=== PATIENT | male | born 1950 | race Caucasian/White ===

== ENCOUNTER 2017-06-28 12:43 | Emergency (ER) | payer MEDICARE ==
[~2017-06-28] VITALS: Ht 175.3 cm; Wt 135.0 kg
[~2017-06-28 12:43] MED LIST: ALLO300 PO; BUPR150T3 PO; GLIM1 PO; GLUC250C5 PO; GLUCTAB PO; METH750T2 PO; REDCAP2 PO; UNIV15TA PO; ZIAC106.25 PO
[2017-06-28 12:47] VITALS: BP 174/105; PULSE 92; RESP 19; TEMP 97.6
[2017-06-28] MEDS ORDERED: KETOROLAC TROMETHAMINE 60 MG/2 ML (IM) VIAL IM ONE (14:00)
[2017-06-28] MEDS ORDERED: ORPHENADRINE INJ 60 MG/2 ML AMP IM ONE (14:00)
--- NOTE | 2017-06-28 15:22 | PD ---
HPI Chief Complaint: Back/ Neck Pain or Injury Time Seen by Provider: 13:29 Travel History International Travel<30 days: No Contact w/Intl Traveler<30days: No Traveled to known affect area: No History of Present Illness HPI 67-year-old male presents emergency department for evaluation of low back pain times one day. Patient reports while rolling over in his bed this morning he felt a sharp pain in his low back and a cracking sound. He has had midline low back pain since. He denies incontinence, saddle anesthesia, numbness/weakness/ tingling in the lower extremities. He is ambulatory with a cane which is his usual mode of ambulation. He has chronic low back pain and herniated disks. He reports this pain is worse than his chronic pain. It was unrelieved by over- the-counter Aleve. Pain is worse with movement and twisting. Slightly relieved with rest. Pain scale 6/10 PFSH Past Medical History Depression: Yes Cancer: No Cardiovascular Problems: No Diabetes: Yes Endocrine: Yes Gout: Yes Genitourinary: No Hepatitis: No Hiatal Hernia: No Hypertension: Yes Immune Disorder: No Musculoskeletal: Yes (arthritis) Neurologic: Yes (NEUROPATHY TOES- BILATERAL) Psychiatric: Yes (depression, anxiety) Reproductive: No Respiratory: No Immunizations Current: No Thyroid Disease: No Past Surgical History AICD: No Body Medical Devices: NONE Joint Replacement: No Oral Surgery: Yes (T&A AGE 20) Pacemaker: No Tonsillectomy: Yes Other Surgery: Yes (CLUB FEET INFANT) Social History Alcohol Use: Yes (SOCIAL) Tobacco Use: No (QUIT 2003) Substance Use: No Allergies-Medications (Allergen,Severity, Reaction): Coded Allergies: doxycycline (Verified Allergy, Severe, 06/28/17) PT STATES HE IS NOT ALLERGIC TO THIS MEDICATION minocycline (Verified Allergy, Severe, 06/28/17) PT STATES HE IS NOT ALLERGIC TO THIS MEDICATION tigecycline (Verified Allergy, Severe, 06/28/17) PT STATES HE IS NOT ALLERGIC TO THIS MEDICATION tramadol (Verified Allergy, Severe, Hives, 06/28/17) INTERMEDIATE REACTION Reported Meds & Prescriptions Reported Meds & Active Scripts Active Robaxin (Methocarbamol) 750 Mg Tab 750 Mg PO TID PRN Reported Bupropion Hcl Xl (Bupropion HCl) 150 Mg Tab 150 Mg PO DAILY Univasc (Moexipril HCl) 15 Mg Tab 15 Mg PO DAILY Glucosamine Chondroitin (Glucosamine-Chondroitin) 1 Cap Cap 1 Cap PO BID Red Yeast Rice (Red Yeast Rice Extract) Cap 1 Cap PO DAILY Amaryl (Glimepiride) 1 Mg Tab 1 Mg PO DAILYAC Zyloprim 300 Mg Tab (Allopurinol) 300 Mg Tab 300 Mg PO DAILY Glucophage (Metformin HCl) 500 Mg Tab 500 Mg PO BID Ziac 10/6.25 (Bisoprolol Fumarate/HCTZ) Tab 1 Tab PO DAILY Review of Systems Except as stated in HPI: all other systems reviewed are Neg General / Constitutional: No: Fever Neurologic: No: Weakness Physical Exam Narrative GENERAL: Well-nourished, well-developed patient. SKIN: Focused skin assessment warm/dry. HEAD: Normocephalic. EYES: No scleral icterus. No injection or drainage. NECK: Supple, trachea midline. No JVD or lymphadenopathy. CARDIOVASCULAR: Regular rate and rhythm without murmurs, gallops, or rubs. RESPIRATORY: Breath sounds equal bilaterally. No accessory muscle use. GASTROINTESTINAL: Abdomen soft, non-tender, nondistended. MUSCULOSKELETAL: No cyanosis, or edema. BACK: Nontender without obvious deformity. No CVA tenderness. NEUROLOGICAL: Awake and alert. Motor and sensory grossly within normal limits. Five out of 5 muscle strength in all muscle groups. Normal sensation. 2+ DTRs. Dorsiflex and plantarflex intact Data Data Last Documented VS Vital Signs Date Time Temp Pulse Resp B/P (MAP) Pulse Ox O2 Delivery O2 Flow Rate FiO2 06/28/17 12:47 97.6 92 19 174/105 (128) Room Air Orders Orders Ketorolac Inj (Toradol Inj) (06/28/17 14:00) Orphenadrine Inj (Norflex Inj) (06/28/17 14:00) Spine, Lumbar Comp W/Obliq (06/28/17 ) Spine, Thoracic-Ap/Lat/Sw(3vw) (06/28/17 ) [facility] Medical Decision Making Medical Screen Exam Complete: Yes Emergency Medical Condition: Yes Differential Diagnosis Lumbar strain versus thoracic spine fracture versus lumbar thoracic spine fracture versus herniated disc Narrative Course 67-year-old male with chief complaint of low back pain after rolling over in bed this morning. Pain is unrelieved by one dose of [id number] Aleve. He denies incontinence, saddle anesthesia, numbness or seeing his has weakness in the extremities. Patient is ambulatory which a cane which is his normal mode of ambulating. He reports the pain is worse with movement and relieved with rest. On exam patient has midline lower thoracic upper lumbar tenderness. He has a normal neurologic exam in the lower extremities. X-ray of the thoracic and lumbar spine ordered and pending. Patient medicated with Toradol and Norflex. He will be observed in the emergency department. X-ray of thoracic and lumbar spine are negative for acute fracture. Diagnostic studies discussed with patient and family. He reports slight symptom improvement but pain still persists. Patient will be discharged home and instructed to take NSAIDs and given a prescription for Percocet. Instructed to follow up with his PCP. Patient verbalizes understanding and agrees to plan Diagnosis Primary Impression: Back pain Qualified Codes: M54.5 - Low back pain Referrals: Primary Care Physician Additional Instructions: Take [id number] Motrin 600-800 mg every 6-8 hours as needed for pain Take the medication as prescribed. Follow-up with her primary doctor. Avoid heavy lifting or strenuous activity. Return to The emergency department if he developed new or worsening symptoms. Disposition: 01 DISCHARGE HOME Condition: Stable Asha Lynn Jun 28, 2017 15:21
--- NOTE | 2017-06-28 15:28 | RADRPT ---
EXAM DATE/TIME: 06/28/2017 14:42 [facility] COMPARISON: No previous studies available for comparison. INDICATIONS : Low back pain after turning in bed. Patient is very painful. MEDICAL HISTORY : History of back trouble and pain. SURGICAL HISTORY : None. ENCOUNTER: Initial ACUITY: 1 day PAIN SCORE: 10/10 LOCATION: Mid back pain. FINDINGS: There are mild degenerative changes in lumbar spine. There is good preservation of the disc space heights. Alignment is anatomic. Fracture is not appreciated. CONCLUSION: Mild facet degenerative changes. Santiago Chawla MD FACR on June 28, 2017 at 15:23 Board Certified Radiologist. This report was verified electronically.
--- NOTE | 2017-06-28 15:29 | RADRPT ---
EXAM DATE/TIME: 06/28/2017 14:42 [facility] COMPARISON: No previous studies available for comparison. INDICATIONS : Back pain after turning in bed. MEDICAL HISTORY : H/O back pain. SURGICAL HISTORY : None. ENCOUNTER: Initial ACUITY: 1 day PAIN SCORE: 10/10 LOCATION: Mid back pain. FINDINGS: There is good preservation of vertebral body heights. Mild degenerative changes are evident. There is no acute compression CONCLUSION: Mild degenerative changes. Santiago Chawla MD FACR on June 28, 2017 at 15:27 Board Certified Radiologist. This report was verified electronically.
[2017-06-28] MEDS ORDERED: PERC5TAB12 PO ×2 (15:38→15:39)
== END 2017-06-28 15:53 | disposition home or self-care (01) ==
LOC: NEPK 12:43
DX: M54.5 Low back pain (principal); G89.29 Other chronic pain; F32.9 Major depressive disorder, single episode, unspecified; I10 Essential (primary) hypertension; E11.40 Type 2 diabetes mellitus with diabetic neuropathy, unspecified; M10.9 Gout, unspecified; M19.90 Unspecified osteoarthritis, unspecified site; F41.9 Anxiety disorder, unspecified; Z79.899 Other long term (current) drug therapy
CPT/HCPCS: 72072; 72110; 96372; 99284; J1885; J2360